=== PATIENT | male | born 1945 | race Caucasian/White ===

== ENCOUNTER 2017-01-04 12:28 | Inpatient (IN) | payer MEDICARE ==
[~2017-01-04] VITALS: Ht 172.7 cm; Wt 63.6 kg
--- NOTE | ~2017-01-04 | ESTC ---
Cardiac Perfusion Imaging Demographics Patient Name COLLEEN Jones Gender Male Patient Number [id number] Race Visit Number [id number] Ethnicity Corporate ID Room Number G6308 Accession Number [id number] Height 68 inches Date of 1945 Weight 140 pounds Eulalia Interpreting Physician Bryan Date of study 01/06/2017 Eulalia Supervising /FERDINAND FINLEY Technologist Marilyn Hopper Ordering Physician Stress telecommunications field technician Stress ECG Reading Bryan Nurse Saleem Manjinder Physician Eulalia Medications Reviewed with Patient prior to Procedure. Procedure Admit Source:Transfer acute care facility. Procedure Type: Nuclear Stress Test:Pharmacological, Lexiscan, Cardiolite Stress Test Procedure Start time: 01/06/2017 08:30 Indications: Shortness of breath. Risk Factors The patient risk factors include:physical activity, Current/Recent(w/in 1 year) tobacco use and chronic lung disease. Conclusions Summary Perfusion Images: The overall quality of the study is fair, due to gastrointestinal tracer uptake. Left ventricular cavity is noted to be normal on the stress and rest studies. There is no evidence of abnormal lung activity. The right ventricle is not visualized and cannot be assessed. Stress SPECT images demonstrate homogenous tracer distribution throughout the myocardium except for mild decrease uptake in the area involving the inferior and septal wall worse on rest images with preserved wall motion consistent with soft tissue attenuation. Gated SPECT imaging reveals normal myocardial thickening and wall motion. The left ventricular ejection fraction was calculated to be 67%. Impression ECG portion of stress test is clinically negative for ischemia by diagnostic criteria. Myocardial perfusion imaging is mildly abnormal. However, no significant reversible perfusion defects were seen to suggest ischemia. The mild inferior and septal wall defects worse on rest images with preserved wall motion are consistent with soft tissue attenuation. Overall left ventricular systolic function was normal without regional wall motion abnormalities. Stress Protocols Resting ECG Sinus rhythm Pre-stress physical exam: Patient assessed by Dr Rice prior to testing. Predicted HR: 151 bpm ECG Findings No ECG changes suggestive of ischemia. Arrhythmias Occasional PVCs Symptoms None Stress Interpretation ECG portion of stress test is negative for ischemia by diagnostic criteria. Nuclear images are pending. Imaging Results Applied corrections - Motion correction applied High risk findings Summed scores - Summed stress score: 9 - Summed rest score: 12 - Summed difference score: -3 Stress ejection Ejection fraction:66 % EDV :113 ml ESV :38 ml Stroke volume :75 ml LV mass :137 gr Imaging Protocols Rest Stress Isotope:Tc99m Sestamibi IV Isotope: Tc99m Sestamibi IV Isotope dose:10 mCi Isotope dose:32.2 mCi Date:01/06/2017 07:01 Date:01/06/2017 10:08 Technique: SPECT Technique: Gated Supine SPECT Supine IV remains in place after procedure. Procedure Medications - Regadenoson (Lexiscan) 0.4 mg IV over 10-15 sec. I.V. 0.4 mg. Medications administered per verbal order and read back to physician prior to administration. Medical History Admission Data Admission date: 01/04/2017 Admission Time: 15:28 Hospital Status: Inpatient. Signatures dtt: EULALIA RICE dtd: 01/06/17 0830 Physician Self Edit
--- NOTE | ~2017-01-04 | CON ---
PATIENT'S NAME: JASON MACIAS [facility] AGE: 71 Y [address] ROOM: [place] [address] LOCATION: GPCU ADMIT DATE: 01/04/2017 Consultation DISCHARGE DATE: FAMILY PHYSICIAN: PHYSICIAN, NO ATTENDING PHYSICIAN: VINCENZO FULLER REFERRING PHYSICIAN: SALLY RICE MD PRIMARY CARE PHYSICIAN: Dr. Babatunde Kaiser. REFERRING PHYSICIAN: Dr. Amanda. REASON FOR CONSULT: Supraventricular tachycardia. HISTORY OF PRESENT ILLNESS: Mr. Macias is a pleasant 71-year-old male, who presented to [facility] with history of shortness of breath and palpitations. He was found to be in rapid ventricular rate and was referred to [facility] Emergency Room. The patient was found to be tachycardic and he was given Cardizem bolus, following which he converted to sinus rhythm. Presently, he is in sinus rhythm. The patient stated that he has been symptomatic since 4 to 5 days with complaints of worsening shortness of breath, cough with purulent expectoration and today he had palpitations. The patient denied any chest pain. He is physically active and works. REVIEW OF SYSTEMS: The patient denied any change in vision. No history of nausea, vomiting, diarrhea, or constipation. No history of fever. History of cough with expectoration. No history of recent visual change. No history of chest pain. No history of syncope. No history of leg weakness and leg cramps. Review of other systems was essentially negative. PAST MEDICAL HISTORY: The patient denied any diabetes. He has not sought medical care for several months prior to this episode. PAST SURGICAL HISTORY: History of hemorrhoid surgery. SOCIAL HISTORY: The patient is . FAMILY HISTORY: His both parents have . He does not know the cause of on his PATIENT'S NAME: JASON MACIAS [facility] AGE: 71 Y [address] ROOM: [address] [place] [id number] LOCATION: GPCU ADMIT DATE: 01/04/2017 Consultation DISCHARGE DATE: FAMILY PHYSICIAN: PHYSICIAN, NO ATTENDING PHYSICIAN: VINCENZO FULLER father; however, his mother of old age. His mother also has history of coronary artery disease and NE in the past. However, he is not sure at what age. She had NE. PERSONAL HISTORY: He smokes little less than a pack of cigarettes a day and has been smoking for several years. He also drinks 3 to 4 beers a day. PHYSICAL EXAMINATION: VITAL SIGNS: His heart rate is 72 beats per minute, regular; blood pressure is 102/56. Oxygen saturation 95% on 4 L of oxygen. HEENT: His head is atraumatic and normocephalic. Oral mucosa is moist. NECK: No significant jugular venous distention is present. CARDIOVASCULAR: S1 and S2 are audible. They are regular in rate and rhythm. Grade 2/6 systolic murmur is audible in the left parasternal area. RESPIRATORY: His chest is emphysematous. Bilateral vesicular breath sounds are audible. Scattered expiratory rhonchi are audible. ABDOMEN: Soft, nontender. Bowel sounds are present. EXTREMITIES: Showed no significant pedal edema. His skin is warm and dry. NEUROLOGIC: The patient is able to move all 4 extremities. No focal neurological deficits noted. LABS: His initial EKG showed atrial flutter with ventricular rate of 182 beats per minute. After he was given Cardizem 15 mg IV bolus his heart rhythm changed to sinus rhythm. Serum Biochemistry: Sodium 138, potassium 4.8, chloride 99, CO2 of 26, BUN 16, creatinine 0.9. ALT 37, AST 40, white blood cell count 12, hemoglobin 15.2, platelet count 254. CPK 384. CK-MB 1.5. Troponin 0.041. ASSESSMENT AND PLAN: 1. Atrial flutter with rapid ventricular rate, presently in sinus rhythm. We will start the patient on low dose of Cardizem as tolerated by his blood pressure. In view of his severe COPD, we will avoid beta-blockers. Discussed with the patient risks and benefits of long-term oral anticoagulation. The patient is agreeable to long-term anticoagulation. Agree with starting the patient on Lovenox and monitoring. 2. Chronic obstructive pulmonary disease exacerbation. The patient is maintaining oxygen saturation on 4 L of oxygen by nasal cannula. Management per primary care provider and hospitalist team. 3. Alcohol dependence. The patient was advised to quit drinking alcohol. 4. Tobacco dependence. The patient was advised to discontinue smoking. We will monitor patient on telemetry. Check serial cardiac isoenzymes. In view of borderline cardiac troponins and coronary artery disease and the risk factors including smoking, we will obtain stress test in a.m. to evaluate for coronary ischemia. We will also obtain 2D echocardiogram to PATIENT'S NAME: JASON MACIAS [facility] AGE: 71 Y [address] ROOM: [address] [place], [place] [address] [facility]ATION[facility] ADMIT DATE: 01/04/2017 Consultation DISCHARGE DATE: FAMILY PHYSICIAN: PHYSICIAN, AYAKA ATTENDING PHYSICIAN: VINCENZO FULLER evaluate left ventricular function, pulmonary pressures. We will follow the patient along with you. Thank you for allowing us in taking part in the care of this pleasant patient. The plan of care was discussed with ER physician, Dr. Amanda and patient. MD KALLIE REYNOLDS/brett /[id number] d: 01/04/17 2252 t: 01/20/17 1614, CONSULTATION REPORT
--- NOTE | ~2017-01-04 | PUL ---
PATIENT'S NAME: JASON MACIAS [facility] AGE: 71 Y [address] ROOM: [place] [address] LOCATION: GPCU ADMIT DATE: 01/04/2017 Pulmonary DISCHARGE DATE: FAMILY PHYSICIAN: PHYSICIAN, NO ATTENDING PHYSICIAN: VINCENZO FULLER NAME OF PROCEDURE: Bedside Spirometry DATE OF PROCEDURE: January 04, 2017 TECH: REASON FOR EXAM: A FIB RESULTS: FVC was 2.96 liters which is 72% of predicted and low, FEV1 was 1.2 liters which is 40% of predicted and low, and FEV1/FVC was 40.5% and low. The flow volume curve revealed significant airflow limitation. After bronchodilator administration FVC increased to 3.13 liters which is a 6% increase and FEV1 decreased to 0.97 liters. FEV1/FVC was 31.1. Please note that the maneuvers were not reproducible. PATIENT INTERPRETATION: The patient has evidence of severe airflow limitation without a significant bronchodilator response. The results have to be interpreted with care as the maneuvers were not reproducible. MD NILSA HICKS/bárbara /[id number] dtt: 01/09/17 0853 MANUEL RADU F dtd: 01/06/17 1454
--- NOTE | ~2017-01-04 | ER ---
PATIENT'S NAME: JASON AMCIAS [facility] AGE: 71 Y [address] ROOM: [place] [address] LOCATION: GPCU ADMIT DATE: 01/04/2017 ER/Outpatient Report DISCHARGE DATE: FAMILY PHYSICIAN: PHYSICIAN, NO ATTENDING PHYSICIAN: VINCENZO FULLER CHIEF COMPLAINT: Illness. HISTORY OF PRESENT ILLNESS: Mr. Macias presents by the vehicle of Dr. Gee Craig for further evaluation of unstable vital signs and shortness of breath. Mr. Macias presented to their clinic today as he had seen [facility] many decades ago. He came complaining of shortness of breath. He is a strong smoker. He has no known medical issues, although he has not seen a physician in many many years. He was found to be hypoxic, hypotensive, and tachycardic with an EKG revealing SVT. He was brought in as he refused ambulance transport. PAST MEDICAL HISTORY: Documented on the record and reviewed by me. SOCIAL HISTORY: Documented on the record and reviewed by me. MEDICATIONS: Documented on the record and reviewed by me. ALLERGIES: DOCUMENTED ON THE RECORD AND REVIEWED BY ME. REVIEW OF SYSTEMS: All systems are reviewed and are negative except as noted in the HPI. PHYSICAL EXAMINATION: VITAL SIGNS: Blood pressure is 114/71, pulse is 180, respiratory rate is 18, temperature 98.0, and SpO2 is 96% on 4 L nasal cannula. Pain is 0/10. GENERAL: Age-appropriate male, in no obvious pain, in mild respiratory distress with coughing. HEENT: Normocephalic, atraumatic. Eyes are PERRL. Oropharynx is clear. NECK: Supple. Trachea is midline. CHEST/HEART: Tachycardic with no obvious murmurs. LUNGS: Coarse bilateral with scattered wheezes. No focal abnormalities. ABDOMEN: Soft, nontender, and nondistended. No rebound, guarding, or masses. PATIENT'S NAME: JASON MACIAS [facility] AGE: 71 Y [address] ROOM: [address] [address] LOCATION: GPCU ADMIT DATE: 01/04/2017 ER/Outpatient Report DISCHARGE DATE: FAMILY PHYSICIAN: PHYSICIAN, NO ATTENDING PHYSICIAN: VINCENZO FULLER BACK: Normal to inspection and palpation. EXTREMITIES: Warm and well perfused with no obvious abnormalities. NEUROLOGIC: Awake and alert. GCS is 15. No focal deficits. No asymmetry. No gait abnormalities. No problems with coordination. LABORATORY DATA AND X-RAYS: Chest CT PE protocol with no PE and significant emphysema and scarring. No clear infiltrates per Radiology. Initial EKG reveals atrial fibrillation with RVR, rates in the 175-180 range. Repeat EKG reveals sinus rhythm with a rate of approximately 100. Labs: White count 12.6, 9.1 neutrophils, hemoglobin 16, and platelets of 263. INR is less than 1. CMS: Sodium of 133, potassium and chloride are appropriate, glucose 113. Multiple protein abnormalities. AST elevated at 46. Magnesium 2.4, CPK is 384, CK-MB is 1.5, and troponin I is 0.041. Free T4 is 1.5, TSH is 0.849. Repeat cardiac markers slightly elevated, CK-MB at 1.7, troponin I 0.044. Blood gas; pH 7.4, pCO2 is 30, PO2 is 77, bicarb is 22.3, saturating 96% on 4 L nasal cannula. Lactate is 1.2. D-dimer 0.81. IMPRESSION: 1. Atrial fibrillation with rapid ventricular rate. 2. Hypoxia, unclear etiology. 3. Elevation of AST, unclear etiology. 4. Elevation of troponin, unclear etiology. 5. Hyperthyroidism. EMERGENCY DEPARTMENT COURSE: The patient was seen and evaluated. He was started on diltiazem drip and spontaneously converted back to sinus rhythm. He remained hemodynamically stable otherwise besides his oxygen requirement. Unclear etiology for hypoxia. Hyperthyroidism may be contributing to his current presentation. The patient will be admitted to the Hospitalist Service, as he is not clearly established with [facility]. Also, Dr. Dang and Dr. Adams, Cardiology, were consulted to help evaluate his atrial fibrillation with RVR. All questions were answered, and the patient was admitted for further evaluation and treatment to the Hospitalist Service for the above issues. MD ANA NOVAK/brett /[id number] d: 01/05/172 t: 01/14/17 0722, OUTPATIENT REPORT
--- NOTE | ~2017-01-04 | PUL ---
PATIENT'S NAME: JASON MACIAS [facility] AGE: 71 Y [address] ROOM: [address] [address] LOCATION: GPCU ADMIT DATE: 01/04/2017 Pulmonary DISCHARGE DATE: 01/07/2017 FAMILY PHYSICIAN: PHYSICIAN, NO ATTENDING PHYSICIAN: Khadijah Sterling NAME OF PROCEDURE: Overnight Pulse Oximetry DATE OF PROCEDURE: January 06 to January 07, 2017 REASON FOR EXAM: Nocturnal hypoxemia RESULTS: The test was performed on room air. The recording time was 9 hours, 8 minutes and 12 seconds, with a recording time of 7 hours, 55 minutes and 28 seconds. The highest pulse was 82, lowest pulse of 58, with a mean pulse of 70. The highest SpO2 97%, lowest 84%, with a mean SpO2 of 91.6%. The patient spent 3 minutes with SpO2 less than 89%, representing 0.6% of the total sleep time. The desaturation event index was normal at 1.9. PHYSICIAN INTERPRETATION: The patient does not have evidence of significant nocturnal hypoxia as per Medicare group one criteria, but has significant nocturnal hypoxia as per Medicare group two criteria. Clinical correlation is advised. MD NILSA HICKS/vero /[id number] dtt: 01/10/17 1743 , SVETA JACKSON dtd: 01/10/17 1512
--- NOTE | ~2017-01-04 | DS ---
PATIENT'S NAME: JASON MACIAS [facility] AGE: 71 Y [address] ROOM: [address] [place], [place] [address] LOCATION: GPCU ADMIT DATE: 01/04/2017 Discharge Summary DISCHARGE DATE: 01/07/2017 FAMILY PHYSICIAN: PHYSICIAN, NO ATTENDING PHYSICIAN: Khadijah Sterling ADMITTING DIAGNOSIS: Acute hypoxic respiratory failure. DISCHARGE DIAGNOSIS: Acute hypoxic respiratory failure secondary to chronic obstructive pulmonary disease exacerbation. SECONDARY DIAGNOSES: 1. Atrial flutter. 2. Hypertension. 3. Tobacco abuse. 4. Medical noncompliance. PROCEDURES: 1. CT chest, PE protocol which showed no PE with severe emphysema. 2. Cardiac stress test which showed no ischemic change. 3. PFT evidence of severe airflow limitation without significant bronchodilator response. The FVC was 2.96 L which is 72% of predicted and low FEV was 1.2 which is 40% of predicted. FEV1/FVC was 40.5%. HISTORY OF PRESENT ILLNESS: The patient is 71-year-old gentleman with long- standing smoking history, has never been seen by doctor for 3 years, now present to [facility] today with trouble breathing over the past four days associated with some subjective fever and chills, cough and sputum production drainage to yellow. No hemoptysis was noted. He was transferred here when he was found to be tachycardic and hypoxic. HOSPITAL COURSE: The patient was found to be in hypoxic respiratory failure. CT shows no PE with severe emphysema. The patient was admitted and started on bronchodilator, prednisone, and Levaquin and was treated for acute COPD exacerbation. The patient was also noted to be in atrial flutter and troponin was also noted to be elevated. The patient was seen by Cardiology and had a stress test which was negative. The patient was started on Cardizem drip. However, the patient's atrial flutter responded to Cardizem drip and the patient was normal sinus rhythm and the patient was also noted to have hypertension during this admission. Per Cardiology, the patient's CHADS-VASc score was two and anticoagulation was recommended. After long discussion, the patient proceeded to elect Eliquis 5 mg p.o. b.i.d. Risk and benefit of anticoagulation was discussed. The patient understands the risk and benefit. During his stay, the patient was noted to be inpatient and want to go home since day of admission. A long discussion was made with the patient about PATIENT'S NAME: JASON MACIAS [facility] AGE: 71 Y [address] ROOM: [address] [place], [place] [address] LOCATION: GPCU ADMIT DATE: 01/04/2017 Discharge Summary DISCHARGE DATE: 01/07/2017 FAMILY PHYSICIAN: PHYSICIAN, NO ATTENDING PHYSICIAN: Khadijah Sterling staying and continuing the treatment. Also discussion was made about tobacco cessation. The patient is not ready to quit tobacco. Social Work was consulted as the patient does not have a primary care physician. The selected Dr. Anderson and wants to follow up with him. A long discussion was also made about medication compliance and also discussed about avoiding work that require cutting, instruments, and/or also any job that poses risk for bleeding since he is on anticoagulation. During his stay, patient's oxygenation improved. The chest x-ray was clear to auscultation. The patient was discharged home on Eliquis 5 mg b.i.d. and Levaquin for 750 mg for three more days and prednisone 40 mg for 2 days. The patient was also discharged on Cardizem 120 mg extended release. The patient is to follow up with Dr. Anderson and Dr. Adams as an outpatient and possible atrial flutter ablation consult to be made as an outpatient. CONDITION: Stable. DISPOSITION: Home. DISCHARGE MEDICATIONS: Please see MAR. RECOMMENDATION: To avoid work that poses risk for bleeding and tobacco cessation. FOLLOWUP: Follow up with Dr. Anderson, his new primary care physician and Dr. Adams, radioisotope technologist that saw the patient during his stay. PHYSICAL EXAMINATION: VITAL SIGNS: Temperature 98.2, heart rates of 17, pulse of 90, blood pressure 145/88, saturating 96% on room air. GENERAL APPEARANCE: The patient is alert and oriented, in no acute distress. CHEST: Clear to auscultation bilaterally. HEART: Regular rate and rhythm. No murmurs, rubs, or gallops. ABDOMEN: Soft, nontender, nondistended. Bowel sounds are present. EXTREMITIES: No edema. TELECOMMUNICATION TOWER TECHNICIAN: Alert and oriented x3. Motor and sensory grossly intact. Greater than 30 minutes was spent on discharge planning. MD Fawn SANTA PATIENT'S NAME: JASON MACIAS [facility] AGE: 71 Y [address] ROOM: [place] [address] LOCATION: [facility] ADMIT DATE: 01/04/2017 Discharge Summary DISCHARGE DATE: 01/07/2017 FAMILY PHYSICIAN: AYAKA BENSON ATTENDING PHYSICIAN: Khadijah Sterling /[id number] d: 01/08/17 0034 t: 01/10/17 0614, DISCHARGE SUMMARY
--- NOTE | ~2017-01-04 | HP ---
PATIENT'S NAME: JASON MACIAS [facility] AGE: 71 Y [address] ROOM: [place] [id number] LOCATION: GPCU ADMIT DATE: 01/04/2017 History & Physical DISCHARGE DATE: FAMILY PHYSICIAN: PHYSICIAN, NO ATTENDING PHYSICIAN: VINCENZO FULLER DATE OF SERVICE: CHIEF COMPLAINT: Trouble breathing. HISTORY OF PRESENT ILLNESS: A 71-year-old gentleman with long-standing smoking history. Has never been to a doctor for over 30 years. Now presented to the [facility] today with trouble breathing for over past four days. Associated with some subjective fever and chills, cough and sputum production greenish in color. No hemoptysis reported. He was transferred here when he was found to be tachycardic and hypoxic. On my encounter, he is saying that he is still short of breath and he is having a lot of cough for past four days. On further inquiry, he did endorse having palpitations but no chest pain. He denied having any abdominal pain, any diarrhea or burning on urination, any extremity swelling. When asked specifically he denied any PND, orthopnea, or leg swelling. REVIEW OF SYSTEMS: All other systems reviewed and were negative except what is mentioned in the HPI. ALLERGIES: NO KNOWN DRUG ALLERGIES. PAST MEDICAL HISTORY: No known past medical history. MEDICATIONS: No home medications. FAMILY HISTORY: Significant for diabetes in dad. SOCIAL HISTORY: About 40 pack year smoking history. PHYSICAL EXAMINATION: VITAL SIGNS: Blood pressure 120/70, heart rate 72, saturating 93% on 4 L of oxygen. PATIENT'S NAME: JASON MACIAS [facility] AGE: 71 Y [address] ROOM: [address] [address] LOCATION: GPCU ADMIT DATE: 01/04/2017 History & Physical DISCHARGE DATE: FAMILY PHYSICIAN: PHYSICIAN, NO ATTENDING PHYSICIAN: VINCENZO FULLER GENERAL: No acute distress. Alert and oriented x3. HEENT: Head: Atraumatic, normocephalic. Eyes: Nonicteric. No pallor. Oropharynx: Moist mucous membranes. CARDIOVASCULAR: S1, S2. No murmurs, gallops, or rubs. LUNGS: Bilateral expiratory wheezes. No crackles found. ABDOMEN: Soft, nontender, nondistended. Bowel sounds present. EXTREMITIES: No clubbing, cyanosis, or edema. PSYCH: Normal affect, mood and speech. NEUROLOGIC: Cranial nerves II through XII intact. No motor or sensory deficit. MUSCULOSKELETAL: No muscle tenderness noted. No joint swelling. ENDOCRINE: No thyromegaly or ashley disease features noted. LYMPHATICS: No lymphangitis. RADIOLOGIC DATA: A CT scan of the chest done in the emergency department revealed a questionable atypical pneumonia. No evidence of pulmonary embolism. Severe emphysema reported. Chest x-ray was done, showed hyperinflated lungs. Initially on arrival to the emergency department EKG was done, which showed atrial fibrillation, rapid ventricular rate which resolved to normal sinus rhythm in the ER but without any improvement in his hypoxia. LABORATORY DATA: ABG was done in the emergency department showed pH is 7.4, pCO2 30, PO2 77, lactate 1.2. Troponin two set was 0.044 and 0.041. ProBNP is pending. White count elevated at 12.6. Also having hyponatremia at sodium of 133. Procalcitonin is pending at this point. Free T4 is elevated at 1.5. ASSESSMENT: 1. Acute hypoxic respiratory failure. 2. Atypical pneumonia. 3. Atrial fibrillation with rapid ventricular rate. 4. Hyponatremia. 5. Chronic obstructive pulmonary disease exacerbation. 6. Elevated free T4. PLAN: We are going to admit this patient. We are going to start treatment for COPD exacerbation with DuoNeb, Symbicort, prednisone, Levaquin, and O2 supplementation. He will need spirometry for the official diagnosis of COPD. We are going to get echo and Cardiology consultation. We will put him on therapeutic anticoagulation with Lovenox. Troponins will be trended. Sodium will be monitored after IV fluid resuscitation. Urine streptococcal and Legionella antigen will be done. Sputum cultures and blood cultures will be obtained. I had discussion with the patient, he wants to be DNR/DNI. Symptomatic control with codeine and guaifenesin. DVT prophylaxis on PATIENT'S NAME: JASON MACIAS [facility] AGE: 71 Y [address] ROOM: [place] [id number] LOCATION: GPCU ADMIT DATE: 01/04/2017 History & Physical DISCHARGE DATE: FAMILY PHYSICIAN: PHYSICIAN, NO ATTENDING PHYSICIAN: VINCENZO FULLER therapeutic anticoagulation. ACTIVITY: As tolerated. DIET: Cardiac diet. MD CHANEL DAHL/modl /[id number] D: [id number] T: [id number] HISTORY & PHYSICAL
--- NOTE | ~2017-01-04 | ECHO ---
Transthoracic Echocardiography Report (TTE) Demographics Patient Name JASON MACIAS Date of Study 01/05/2017 Patient Number [id number] Visit Number [id number] Date of 1945 Room Number G6308 Accession Number [id number] Gender Male Age 71 year(s) Referring Choirmaster Shilo Hardin RVT, Physician HOLLEY Physician Interpreting Bryan Esteban Csr Physician Supervising Ordering Physician Hallie Barragan MD/FERDINAND VARGAS Nurse Stress Cashier Tube Room Conclusions Contractility Score Summary Normal Left Ventricular contractility was noted. Summary The estimated left ventricular ejection fraction is 60%. Mild concentric left ventricular hypertrophy. Diastolic assessment reveals Grade I diastolic dysfunction. Mildly dilated right ventricle. The left atrium is mildly dilated. The right atrium is mild to moderately dilated. Mild tricuspid regurgitation by color Doppler. Mild pulmonic valve regurgitation by color Doppler. Procedure Type of Study TTE procedure:2D Echocardiogram. Procedure Date Date: 01/05/2017 Start: 07:16 AM Study Location: Inpatient Portable Technical Quality: Adequate visualization Indications:Atrial fibrillation. Appropriate Use Criteria: 8 Patient Status: Routine Rhythm: NSR HR: 72 bpm BP: 123/65 mmHg M-Mode/2D Measurements LV Diastolic Dimension: 3.8 cm LV Systolic Dimension: 2.43 cm LV Septum Diastolic: 1.32 cm LV PW Diastolic: 1.07 cm AO Root Dimension: 3 cm Cardiac Output: 5.16 l/min AV Cusp Separation: 1.5 cm RV Diastolic Dimension: 3.28 cm LA volume: 80 ml LVOT: 2.1 cm RV Base: 2.69 cm LVOT VTI: 20.7 cm RV Mid: 2.5 cm LV Stroke volume: 71.66 ml TAPSE: 3.02 cm TDI-S': 14.5 cm/s Doppler Measurements AV Peak Velocity: 1.69 m/s MV Peak E-Wave: 0.74 m/s AV Peak Gradient: 11.42 mmHg MV Peak A-Wave: 0.85 m/s AV Mean Gradient: 7 mmHg MV E/A Ratio: 0.86 LVOT Peak Velocity: 1.09 m/s MV P1/2t: 77 msec TR Gradient:28.52 mmHg PV Peak Velocity: 0.91 m/s Estimated RAP:5 mmHg PV Peak Gradient: 3.31 mmHg Estimated RVSP: 34 mmHg Estimated PASP: 33.52 mmHg E' Septal Velocity: 0.08 m/s A' Septal Velocity: 0.14 m/s E' Lateral Velocity: 0.07 m/s A' Lateral Velocity: 0.13 m/s Findings Left Ventricle Mild concentric left ventricular hypertrophy. Diastolic assessment reveals Grade I diastolic dysfunction. Right Ventricle Mildly dilated right ventricle. Left Atrium The left atrium is mildly dilated. There is no evidence of patent foramen ovale or atrial septal defect by color Doppler. Right Atrium The right atrium is mild to moderately dilated. IVC measures 1.64 cm with inspiratory collapse. Mitral Valve Normal mitral valve structure and function. Aortic Valve Normal aortic valve structure and function. Tricuspid Valve Mild tricuspid regurgitation by color Doppler. Pulmonic Valve Mild pulmonic valve regurgitation by color Doppler. Pericardial Effusion No evidence of pericardial effusion. Miscellaneous Visualized portions of the aortic root and ascending aorta appear normal in size. Pleural Effusion No evidence of pleural effusion. Contractility Score LV regional wall motion:(0-Non visualized 1-Normal 2-Hypokinesis 3-Akinesis 4-Dyskinesis 5-Aneurysm) Signature dtt: SALLY RICE dtd: 01/05/17 0716 Physician Self Edit
[2017-01-04 12:59] LABS: HEMATOCRIT 48.1 % (37.0-53.0); MCH 32.3 pg (27.0-34.0); MCHC 33.3 gm/dL (32.0-36.5); MCV 97.2 fl (83.0-98.0); PLATELET COUNT 263 K/uL (150-450); RBC 4.95 M/uL (3.50-5.50); RDW-CV 13.1 % (11.9-14.6); WBC 12.6 K/uL (4.0-11.0)
[2017-01-04 13:00] LABS: BICARBONATE 22.3 mmol/L (18.0-23.0); LACTATE 1.2 mEq/L (0.50-1.60); PCO2 30 mmHg (35-45); PO2 77 mmHg (80-90)
[2017-01-04 13:08] LABS: INR - (THERAPEUTIC) 0.89 (0.92-1.07); PROTIME 9.3 SECONDS (9.8-11.4); PTT 31 SECONDS (25-32)
[2017-01-04 13:35] LABS: ALBUMIN 3.2 gm/dL (3.5-5.0); ANION GAP 14.1 (10.0-19.0); CALCIUM 9.4 mg/dL (8.5-10.5); CREATININE 1.1 mg/dL (0.6-1.3); MAGNESIUM 2.4 mg/dL (1.8-2.6); POTASSIUM 4.1 mMol/L (3.7-5.1); TOTAL BILIRUBIN 0.6 mg/dL (0.0-1.5); TOTAL PROTEIN 8.5 g/dL (6.0-8.4)
[2017-01-04 13:44] LABS: ABSOLUTE NEUTROPHIL CT (ANC) 9.1 K/uL (1.4-9.0); BANDED NEUTROPHIL # 6.7 K/uL (0.0-0.1); BANDED NEUTROPHILS % 53 %; LYMPHOCYTE # 1.4 K/uL (0.8-4.0); LYMPHOCYTE % 11 %; MONOCYTE # 2.1 K/uL (0.0-1.0); SEGMENTED NEUTROPHIL # 2.4 K/uL (1.4-9.0); SEGMENTED NEUTROPHIL % 19 %
--- NOTE | 2017-01-04 16:46 | NUR ---
PT is 71 y/o male admit for afib w rvr/hypoxia/resp failure for hospitalist. PT alert and oriented x3. Pt slightly resistant to cares. Wants monitors off. Explained to pt there's a medical need for monitors to be on. No allergies. Came through ED. No home meds. Resides at home alone. hx cough,some emphysema on xray. Smokes a PPD. Sats in upper 80's, lower 90's on 3L per [place]. States he was lightheaded earlier. Pt has frequent hacking cough.
--- NOTE | 2017-01-05 05:15 | NUR ---
Significant Event: PATIENT IS A/O X3. VSS. HR 60-80'S. SBP 110-120'S. AFEBRILE. 02 SATS IN LOW TO MID 90'S ON 3L 02 PER NC. NO C/O PAIN. LUNGS CLEAR/DIM TO DIM IN BASES. PATIENT IS UP AD JIM IN ROOM. BOWELS ACTIVE. VOIDS PER RESTROOM. IV TO RIGHT FOREARM WITH LR AT 125 ML/HR. NPO SINCE MIDNIGHT FOR POSSIBLE HEART CATH. PATIENT APPEARS TO BE ANXIOUS TO GET OUT OF HERE AND CAN BE UNNCOOPERATIVE AT TIMES. Follow up: ECHO IN AM. POSSIBLE DISCHARGE TODAY?
--- NOTE | 2017-01-05 17:32 | NUR ---
Significant Event: VSS AND WEANED TO 2L/NC. AFEBRILE. DENIES PAIN. IV SALINE LOCKED. TAKING PO WELL. PLAN FOR STRESS TEST IN THE AM. NPO P MN. CD EVAL DONE AND PATIENT REFUSED, COOPERATIVELY THIS AFTERNOON. CM ALSO FOLLOWING REGARDING FINANCIAL CONCERNS PER DR. Hdz. COOPERATIVE WITH CARES THIS SHIFT. CIWA SCORE 0/STABLE. Follow up: CONTINUE PLAN OF CARE; NPO P MN.
--- NOTE | 2017-01-06 04:52 | NUR ---
Significant Event: PATIENT A/O X3. VSS. HR 70'S SBP 130'S. O2 SATS LOW 90'S ON 1 L PER NC. PATIENT NPO AFTER MIDNIGHT, STRESS TEST IN AM. PATIENT HAS PRODUCTIVE COUGH. BOWEL SOUNDS ACTIVE. PATIENT INDEPENDENT TO BATHROOM. IV TO RIGHT FOREARM SL. Follow up: FOLLOW CARE PLAN.
--- NOTE | 2017-01-06 14:55 | NUR ---
Introduced self and role of care management to patient. Patient lives alone in [place]. Talked to him about medications, as indicated he had concerns. He says he has prescription coverage and told the Dr. he would take the medication if copay not more than he could afford. He uses [facility] and is aware of $4 meds and generic meds. He says told him he would need to be on one for his heart and it would be very important to take it as ordered. Told him some of the drug companies have given us copay cards and if the med they order is one of those the nurse will get him a copay card before he goes home. He denies discharge needs and is anxious to go home and back to work. Will follow.
--- NOTE | 2017-01-06 15:37 | NUR ---
Significant event: A&Ox3. Up independent in room. Patient took oxygen off this AM, has been 90-92% on RA. Cough frequent, harsh, whooping at times. Mucinex added. Lungs sounds clear/diminished. Stress test negative, denies CP or SOA. Prednisone d/c, now on IV solumedrol. Lovenox d/c'd, will be on eliquis starting tonight. Trend-ox to be done tonight, RT educated patient on process, seems willing to proceed. Patient can at times be agitated toward staff. In good spirits this afternoon. Follow Up: Continue current POC
--- NOTE | 2017-01-07 05:32 | NUR ---
Significant Event: PATIENT A/O X3. SBP 120'S HR 70'S. PATIENT INDEPENDENT IN ROOM. PATIENT ON TREND OX THROUGHOUT THE NIGHT. SATS IN LOW 90'S ON RA. PATIENT HAS PRODUCTIVE COUGH. LUNGS CLEAR AND DIMINISHED. CARE MANAGEMENT CONSULT NEEDED. PATIENT MAY DISCHARGE THIS AM. Follow up: FOLLOW CARE PLAN.
[2017-01-07] MEDS ORDERED: ELIQUIS5 MG PO (11:39)
[2017-01-07] MEDS ORDERED: MUCINEX600 MG PO (11:39)
[2017-01-07] MEDS ORDERED: LEVAQUIN750 MG PO (11:43)
[2017-01-07] MEDS ORDERED: DULERA 200 MCG/51 EA INH (11:44)
[2017-01-07] MEDS ORDERED: PROAIR RESPICL90 MCG INH (11:48)
[2017-01-07] MEDS ORDERED: DELTASONE10 MG PO (11:49)
[2017-01-07] MEDS ORDERED: CARDIZEM SR120 MG PO (11:52)
--- NOTE | 2017-01-07 18:34 | NUR ---
Patient given dismissal instructions including: home medications with written educational handouts, activity and diet restrictions, and follow-up appointments. Patient ambulated to accompanied by me.
== END 2017-01-07 12:48 | disposition disaster alternative care site (69) | DRG 189 ==
LOC: GMED 12:28 → GPCU 15:28
PROVIDERS: Emergency Medicine; Internal Medicine; ADMIT Internal Medicine
DX: J96.01 Acute respiratory failure with hypoxia (principal); E87.1 Hypo-osmolality and hyponatremia; I47.1 Supraventricular tachycardia; I48.91 Unspecified atrial fibrillation; I48.92 Unspecified atrial flutter; J44.1 Chronic obstructive pulmonary disease with (acute) exacerbation; F10.20 Alcohol dependence, uncomplicated; F17.210 Nicotine dependence, cigarettes, uncomplicated; Z66 Do not resuscitate; I10 Essential (primary) hypertension
CPT/HCPCS: A9500; J0153; J0280; J1650; J2785; J2920; J7030; J7040; J7120; J7512; Q9967